=== PATIENT | female | born 1955 | race Two or more races ===

== ENCOUNTER → 2024-10-31 | Outpatient (CLI) | payer MEDICARE, SELFPAY ==
--- NOTE | 2024-10-31 12:40 | XR_ITS ---
Examination: Bone densitometry Date and time of exam:October 31, 2024 1235 hours INDICATIONS: Menopause age 57 postmenopausal wrist fracture 861, calcium and vitamin D 2 years, personal history osteoporosis Technique: Lumbar spine and hip total bone mineralization values of an calculated. Peak reference and age match control results have been displayed. Findings: Lumbar spine total bone mineralization is0.758 gm/cm2. This is 2.6 standard deviations below peak reference. This is 0.7 standard deviations below age-matched controls. Hip total bone mineralization is 0.579 gm/cm2 This is 2.9 standard deviations below peak reference. This is 1.6 standard deviations below age-matched controls Impression: There is osteoporosis based on lumbar spine measurements. There is osteoporosis based on hip measurements Lumbar mineralization is decreased 0.3% compared with October 05, 2016 Hip mineralization is increased 6.9% compared with October 05, 2016
== END | disposition home or self-care (01) ==
LOC: CDIM 12:10
PROVIDERS: PCP Physician Assistant; Referring Provider Physician Assistant; Visit Provider Physician Assistant
DX: M81.0 Age-related osteoporosis without current pathological fracture (principal)
CPT/HCPCS: 77080

== ENCOUNTER → 2025-01-06 | Outpatient (CLI) | payer MEDICARE, SELFPAY ==
--- NOTE | 2025-01-06 09:00 | XR_ITS ---
Examination: Screening digital mammography, bilateral Computer aided detection 3-D breast Tomosynthesis, bilateral Date and time of exam: January 06, 2025 0850 hours Compared to mammograms dating to August 27, 2014 Indication: Screening Technique: Nonmagnified MLO, CC views of the breasts to been obtained, reconstructed from 3-D Tomosynthesis images. R2 computer aided detection program utilized for evaluation of suspicious masses and/or abnormal calcifications. 3-D Tomosynthesis images obtained. Findings: Scattered areas of fibroglandular density. Benign calcifications. 6 mm focal asymmetry retroareolar region right breast IMPRESSION: BI-RADS Category 0: Incomplete: Need additional imaging evaluation 6 mm focal asymmetry retroareolar region right breast, recommend follow-up spot tomographic views of this asymmetry as well as right breast sonography to complete the workup
== END | disposition home or self-care (01) ==
PROVIDERS: PCP Physician Assistant; Referring Provider Physician Assistant; Visit Provider Physician Assistant
DX: Z12.31 Encounter for screening mammogram for malignant neoplasm of breast (principal); R92.8 Other abnormal and inconclusive findings on diagnostic imaging of breast; N64.89 Other specified disorders of breast
CPT/HCPCS: 77063; 77067

== ENCOUNTER → 2025-03-31 | Outpatient (CLI) | payer MEDICARE, SELFPAY ==
--- NOTE | 2025-03-31 12:45 | XR_ITS ---
Examination: Breast ultrasound, unilateral, right Date and time of exam: March 31, 2025 1332 hours INDICATIONS: Mammogram January 06, 2025 6 mm focal asymmetry retroareolar region right breast Technique: Real-time portillo scale ultrasonographic imaging performed right breast including all 4 quadrants as well as nipple retroareolar and axillary region. Findings: Retroareolar cyst 4 x 5 mm IMPRESSION:: BI-RADS Category 2: Benign findings, small benign cyst corresponding to the mammographic abnormality
--- NOTE | 2025-03-31 13:15 | XR_ITS ---
Examination: Diagnostic digital mammography, unilateral, right Computer aided detection 3-D breast Tomosynthesis, unilateral Date and time of exam: March 31, 2025 1343 hours INDICATIONS: 6 mm focal asymmetry retroareolar region right breast on mammogram January 06, 2025 Technique: Nonmagnified MLO, CC views of the right breast have been obtained, reconstructed from 3-D Tomosynthesis images. R2 computer aided detection program utilized for evaluation of suspicious masses and/or abnormal calcifications. 3-D Tomosynthesis images obtained. Findings: Scattered areas of fibroglandular density Focus of possible architectural distortion remains in the retroareolar region right breast on the spot compression CC view Impression: BI-RADS category 3: Probably benign findings One additional 6 month right mammogram follow-up is needed
== END | disposition home or self-care (01) ==
PROVIDERS: PCP Physician Assistant; Referring Provider Physician Assistant; Visit Provider Physician Assistant
DX: R92.331 Mammographic heterogeneous density, right breast (principal); N64.89 Other specified disorders of breast; N60.01 Solitary cyst of right breast
CPT/HCPCS: 76641; 77061; 77065; G0279